=== PATIENT | male | born 1960 | race Caucasian/White ===

== ENCOUNTER 2025-05-22 11:58 | Emergency (ER) | payer OTHER, MEDICARE, MEDICAID ==
[~2025-05-22] VITALS: Ht 182.9 cm; Wt 93.8 kg
--- NOTE | 2025-05-22 12:03 | Physician Documentation ---
History of Present Illness ~ Chief Complaint: Rash Stated Complaint: RASH Time Seen by MD: 12:27 [facility] 64 yr old male with a history of COPD presents reporting that he believes he has poison oak, perhaps having obtained it from his cat. The rashes to his lower abdomen and thighs. He denies any worsening of his chronic shortness of breath. He has no throat tightness or difficulty swallowing. Denies chills or fever. Medication Reconciliation Allergies: Coded Allergies: No Known Allergies (Unverified , 05/22/25) Review of Systems ROS As stated above in the HPI, otherwise all systems are reviewed and negative. Physical Exam Vital Signs: Temperature: 98.2, Source: Oral, Heart Rate: 93, Respiratory Rate: 16, BP: 152/98, Pulse Oximetry: 94, Weight: 93.800 Oxygen Flow Rate: 0 Physical Exam General: Alert, no apparent distress. Neck: Full range of motion. Respiratory: Moderate wheezing. No tachypnea or evidence of distress. Chest: No accessory muscle use. Cardiovascular: Regular rate and rhythm, no murmurs. Gastrointestinal: Soft, nontender, nondistended. Bowels sounds present. Extremities: Normal range of motion, no deformity. Neurologic: Oriented x4. Psychiatric: Normal mood and affect. Skin: Normal color, warm and dry. Maculopapular rash to thighs and lower abdomen. Progress Results/Orders Results/Orders Vital Signs 05/22/25 11:59 Temp 98.2 Pulse 93 Resp 16 B/P (MAP) 152/98 Pulse Ox 94 O2 Flow Rate 0 Medical Decision Making Additional Comment Treated in the ER with kenalog. Instructed to f/u with PCP, return if worse. Departure Time of Disposition: 12:32 Disposition: 01 HOME / SELF CARE / HOMELESS Impression: Primary Impression: Allergic contact dermatitis Condition: Stable Discharge Instructions: Contact Dermatitis Additional Instructions: Use the prescribed cream twice daily until rash resolved. Take the hydroxyzine twice daily as needed for itching. You go a kenalog (steroid) shot in the ER. See primary care for followup. Return if worse. Referrals: NO PRIMARY CARE PROVIDER (PCP) Prescriptions Triamcinolone Acetonide 0.1% Crm* (Kenalog 0.1% Crm*) 1 Applic Tube 1 APPLIC TOP Q12H for 10 Days, #80 GM Prov: JAMES WYLIE NP 05/22/25 Hydroxyzine Hcl (Atarax) 25 Mg Tablet 1 TAB PO Q12H for itching for 10 Days, #20 TAB 0 Refills Prov: JAMES WYLIE NP 05/22/25 Education Educated: Patient Educated regarding: diagnosis, treatment, prognosis, need for follow up Signature Scribe Signature: no scribe Attestation: The note accurately reflects work and decisions made by me.James Pantoja NP 05/22/25 12:30 JAMES WYLIE NP May 22, 2025 12:03
[2025-05-22] MEDS ORDERED: KEN0.1O TOP (12:34)
[2025-05-22] MEDS ORDERED: HYDR-3686 PO (12:34)
[2025-05-22] MEDS: triamcinolone acetonide 40mg/ml inj IM ONE (12:49)
[2025-05-22 12:54] VITALS: BP 129/76; PULSE 70; RESP 16; TEMP 98.2; O2SAT 93
== END 2025-05-22 12:55 | disposition home or self-care (01) ==
LOC: ER 11:59
DX: L23.9 Allergic contact dermatitis, unspecified cause (principal); J44.9 Chronic obstructive pulmonary disease, unspecified
CPT/HCPCS: 96372; 99283; J3301